=== PATIENT | female | born 1995 ===

== ENCOUNTER 2017-02-03 18:30 | Emergency (ER) | payer BC ==
[~2017-02-03] VITALS: Ht 154.9 cm; Wt 47.9 kg
[2017-02-03 18:33] VITALS: TEMP 36.7; Ht 154.9 cm; Wt 47.9 kg
[2017-02-03] MEDS ORDERED: ASCO1CAP3 PEG (18:45)
[2017-02-03] MEDS ORDERED: BCPILLS PO (18:45)
[2017-02-03] MEDS ORDERED: GELATIN SPONGE 12-7MM EXT ONE (19:00)
[2017-02-03 19:23] VITALS: BP 116/79; PULSE 85; O2SAT 99
--- NOTE | 2017-02-03 20:29 | EMERGENCY ROOM VISIT NOTE ---
History First contact with patient: 18:48 Chief Complaint: LACERATION/CUT (SUT/DERMABOND) Stated Complaint: LACERATION TO RT HAND, 2ND DIGIT Nursing Triage Summary: Laceration to right hand, 2nd digit. reports she was cutting a box and the cutter slipped. Believes Tetanus is utd History of Present Illness The patient is a 21 year old female who presents to the Emergency Room with complaints of a laceration to her right index finger. The patient reports that she was cutting a box and accidentally cut her finger on the sharp edge of the box. She denies any significant bleeding or pain. The patient is right-hand- dominant. She believes that her tetanus immunization is up-to-date, and reports that she will call her family doctor for confirmation. Review of Systems 6 system review was performed and was negative except for pertinent positives and negatives as indicated in history of present illness Past Medical/Surgical History Medical Problems: (1) No significant past medical history Surgical Problems: (1) No history of previous surgery Social History Smoking Status: Never Smoker Alcohol Use: none Marital Status: single Housing Status: lives with roommate Occupation Status: [employer] student Current/Historical Medications Scheduled Ascorbic Acid (Vitamin C), 500 MG PEG DAILY Control Pills ( Control Pills), 1 TAB PO DAILY Physical Exam Vital Signs Date Time Temp Pulse Resp B/P (MAP) Pulse Ox O2 Delivery O2 Flow Rate FiO2 02/03/17 19:23 85 18 116/79 99 02/03/17 18:33 36.7 97 16 119/85 97 Room Air Pain Rating (0-10): 8.0 Physical Exam CONSTITUTIONAL: Healthy and well nourished. Alert and oriented X 3 with positive affect. MUSCULOSKELETAL: Examination of the right index finger shows a small 5 x 6 mm avulsion laceration of the digital pad. There is no active bleeding. There is no involvement of the nail plate. Capillary refill is less than 2 seconds. INTEGUMENTARY: No rash or other significant dermatologic conditions noted. NEUROLOGIC: Right index fingertip is sensory intact. Medical Decision & Procedures ED Course Patient history and physical exam were performed. Nurse's notes were reviewed. Vital signs were reviewed and were normal. A Gelfoam pressure dressing was applied by me. The patient was given additional written and verbal instructions for wound care. She was instructed to watch for any signs of infection. Ibuprofen or Tylenol as needed for pain. The patient was happy with plan of care, and denied any significant pain at the time of discharge. Medical Decision Medication Reconcilliation Current Medication List: was personally reviewed by me Blood Pressure Screening Patient's blood pressure: Normal blood pressure Impression Primary Impression: Laceration of right index finger Departure Information Dispostion Home / Self-Care Forms HOME CARE DOCUMENTATION FORM, IMPORTANT VISIT INFORMATION Patient Instructions My [facility] Additional Instructions Keep dressing in place for 48 hrs, then remove. Soak foam in water until it falls off easily, then clean wound daily, cover with an antibiotic ointment and keep covered until it heals. Return for any signs of infection (increasing redness, swelling, drainage). Ice and elevate for swelling and pain. Ibuprofen 600 mg and/or Tylenol 1000 mg every 8 hours. You may also alternate these medications for more effective pain relief: Ibuprofen --4 HRS--> Tylenol --4 HRS--> ibuprofen --4 HRS--> Tylenol .... Problem Qualifiers Primary Impression: Laceration of right index finger Encounter type: initial encounter Damage to nail status: without damage Foreign body presence: without foreign body Qualified Codes: S61.210A - Laceration without foreign body of right index finger without damage to nail, initial encounter
== END 2017-02-03 19:24 | disposition home or self-care (01) ==
LOC: C.EDB 18:32 → C.EDD 19:24
DX: S61.210A Laceration without foreign body of right index finger without damage to nail, initial encounter (principal); W45.8XXA Other foreign body or object entering through skin, initial encounter

== ENCOUNTER 2017-10-05 17:56 | Emergency (ER) | payer BC ==
[~2017-10-05] VITALS: Ht 156.2 cm; Wt 53.7 kg
[~2017-10-05 17:56] MED LIST: ASCO1CAP3 PEG; BCPILLS PO
[2017-10-05 18:22] VITALS: TEMP 36.8; Ht 156.2 cm; Wt 53.7 kg
--- NOTE | 2017-10-05 19:18 | DIAGNOSTIC IMAGING REPORT ---
CHEST ONE VIEW PORTABLE CLINICAL HISTORY: Atypical chest pain. Chest tightness. Difficulty breathing. COMPARISON STUDY: No previous studies for comparison. FINDINGS: The cardiac and mediastinal contours are normal. There is no evidence of focal pulmonary consolidation. There is no evidence of failure. No pleural effusions are visualized.[ Increased markings towards the lung bases are felt to be secondary to overlying breast tissue attenuation and scatter. An equivocal 5 mm cystic lesion within the left lower lung zone, likely represents a summation. IMPRESSION: 1. 5 mm cystic density visualized towards the left lung base, statistically secondary to a summation 2. No evidence of focal pulmonary consolidation Electronically signed by: John Jett M.D. 10/05/2017 7:17 PM Dictated Date/Time: 10/05/2017 7:15 PM
--- NOTE | 2017-10-05 19:25 | EMERGENCY ROOM VISIT NOTE ---
History Report prepared by Anabel: Amauri Garcia Under the Supervision of: Dr. Clay Wall M.D. First contact with patient: 18:52 Chief Complaint: ILLNESS Stated Complaint: HEART PAIN,TIGHTING,TROUBLE BREATHING History of Present Illness The patient is a 21 year old female who presents to the Emergency Room with complaints of worsening left chest pain beginning about 1.5 weeks ago. She currently rates her discomfort a 7/10 in severity. The patient states she has been experiencing these symptoms for a while, but she just recently started noticing them. She reports she turned to her side yesterday and she had a sharp pain in her chest. The patient notes her chest pain causes her to experience shortness of breath and diaphoresis. She states her discomfort radiates to her left shoulder and neck. The patient reports there will be moments when her heart is beating loudly and can hear it in her ribs. She notes eating causes her discomfort to worsen and her chest to tighten. The patient states she was eating oatmeal this morning and vomited. She reports she has to hold her chest to walk, and her left side is getting darker. The patient notes he has been stressed recently with copious amounts of school work. She states she used to smoke marijuana and stopped when she realized she was experiencing her symptoms. The patient reports she is currently on her menstrual period. Pt denies LOC, headache, fevers, chills, visual changes, nausea, new abdominal pain , back pain, melena, hematochezia, urinary symptoms, numbness, weakness, lymphadenopathy, rash, or other complaints. Source of History: patient Onset: 1.5 weeks ago Position: chest (left) Symptom Intensity: 7/10 Quality: sharp Timing: worsening Associated Symptoms: + diaphoresis, + SOB, + vomiting Note: Associated symptoms: chest tightness, left side chest discoloration, exposed to stress Review of Systems See HPI for pertinent positives and negatives. A total of ten systems were reviewed and were otherwise negative. Past Medical & Surgical Medical Problems: (1) No significant past medical history Surgical Problems: (1) No history of previous surgery Family History Patient reports no known family medical history. Social History Smoking Status: Never Smoker Alcohol Use: none Marital Status: single Housing Status: lives with roommate Occupation Status: [employer] student Current/Historical Medications Scheduled Ascorbic Acid (Vitamin C), 500 MG PEG DAILY Control Pills ( Control Pills), 1 TAB PO DAILY Physical Exam Vital Signs Date Time Temp Pulse Resp B/P (MAP) Pulse Ox O2 Delivery O2 Flow Rate FiO2 10/05/17 21:28 89 16 123/76 98 10/05/17 19:48 100 Room Air 10/05/17 19:48 86 16 122/74 100 Room Air 10/05/17 18:22 36.8 101 20 126/75 99 Room Air Physical Exam GENERAL: Awake, alert, mildly anxious-appearing, in no distress HENT: Normocephalic, atraumatic. Oropharynx unremarkable. EYES: Normal conjunctiva. Sclera non-icteric. NECK: Supple. No nuchal rigidity. FROM. No masses. RESPIRATORY: Clear to auscultation. No wheezes. No rales. Normal respiratory effort. CARDIAC: Borderline tachycardic rate. Normal rhythm. No murmurs. No rubs. Extremities warm and well perfused. Pulses equal. No JVD. GI: Soft, non-distended. No tenderness to palpation. No rebound or guarding. No masses. RECTAL: Deferred. MUSCULOSKELETAL: Atraumatic. Chest examination (performed in the presence of a female nurse) reveals tenderness to the left costal margin and sternal boarder that reproduces her pain. Breast appears normal with no masses. The back is symmetrical on inspection without obvious abnormality. There is no CVA tenderness to palpation. No joint edema. LOWER EXTREMITIES: Calves are equal size bilaterally and non-tender. No edema. No discoloration. NEURO: Normal sensorium. No sensory or motor deficits noted. SKIN: No rash or jaundice noted. Medical Decision & Procedures ER Provider Diagnostic Interpretation: X-ray: Per my interpretation, radiologist review. CHEST ONE VIEW PORTABLE CLINICAL HISTORY: Atypical chest pain. Chest tightness. Difficulty breathing. COMPARISON STUDY: No previous studies for comparison. FINDINGS: The cardiac and mediastinal contours are normal. There is no evidence of focal pulmonary consolidation. There is no evidence of failure. No pleural effusions are visualized.[ Increased markings towards the lung bases are felt to be secondary to overlying breast tissue attenuation and scatter. An equivocal 5 mm cystic lesion within the left lower lung zone, likely represents a summation. IMPRESSION: 1. 5 mm cystic density visualized towards the left lung base, statistically secondary to a summation 2. No evidence of focal pulmonary consolidation Electronically signed by: John Jett M.D. 10/05/2017 7:17 PM Dictated Date/Time: 10/05/2017 7:15 PM CHEST 2 VIEWS ROUTINE CLINICAL HISTORY: Atypical chest pain. Difficulty breathing. Abnormal chest x-ray. COMPARISON STUDY: Earlier today FINDINGS: The cardiac and mediastinal contours are normal. There is no evidence of focal pulmonary consolidation. There is no evidence of failure. No pleural effusions are visualized.[ The previously identified cystic density within the left lower lobe is not visualized on this repeat study. This confirms that it represented a summation. IMPRESSION: No active disease in the chest. Electronically signed by: John Jett M.D. 10/05/2017 8:24 PM Dictated Date/Time: 10/05/2017 8:23 PM Laboratory Results 10/05/17 19:21 Red Blood Count 5.05, Mean Corpuscular Volume 80.6, Mean Corpuscular Hemoglobin 26.9, Mean Corpuscular Hemoglobin Concent 33.4, Mean Platelet Volume 9.6, Neutrophils (%) (Auto) 71.7, Lymphocytes (%) (Auto) 19.8, Monocytes (%) (Auto) 7.6, Eosinophils (%) (Auto) 0.2, Basophils (%) (Auto) 0.1, Neutrophils # (Auto) 7.53, Lymphocytes # (Auto) 2.08, Monocytes # (Auto) 0.80, Eosinophils # (Auto) 0.02, Basophils # (Auto) 0.01 10/05/17 19:21 Test 10/05/17 19:21 10/05/17 19:27 White Blood Count 10.50 K/uL (4.8-10.8) Red Blood Count 5.05 M/uL (4.2-5.4) Hemoglobin 13.6 g/dL (12.0-16.0) Hematocrit 40.7 % (37-47) Mean Corpuscular Volume 80.6 fL (80-100) Mean Corpuscular Hemoglobin 26.9 pg (25-34) Mean Corpuscular Hemoglobin Concent 33.4 g/dl (32-36) Platelet Count 304 K/uL (130-400) Mean Platelet Volume 9.6 fL (7.4-10.4) Neutrophils (%) (Auto) 71.7 % Lymphocytes (%) (Auto) 19.8 % Monocytes (%) (Auto) 7.6 % Eosinophils (%) (Auto) 0.2 % Basophils (%) (Auto) 0.1 % Neutrophils # (Auto) 7.53 K/uL (1.4-6.5) Lymphocytes # (Auto) 2.08 K/uL (1.2-3.4) Monocytes # (Auto) 0.80 K/uL (0.11-0.59) Eosinophils # (Auto) 0.02 K/uL (0-0.5) Basophils # (Auto) 0.01 K/uL (0-0.2) RDW Standard Deviation 42.3 fL (36.4-46.3) RDW Coefficient of Variation 14.6 % (11.5-14.5) Immature Granulocyte % (Auto) 0.6 % Immature Granulocyte # (Auto) 0.06 K/uL (0.00-0.02) Erythrocyte Sedimentation Rate 19 mm/hr (0-21) Prothrombin Time 10.8 SECONDS (9.0-12.0) Prothromb Time International Ratio 1.0 (0.9-1.1) Activated Partial Thromboplast Time 26.0 SECONDS (21.0-31.0) Partial Thromboplastin Ratio 1.0 Anion Gap 8.0 mmol/L (3-11) Est Creatinine Clear Calc Drug Dose 113.7 ml/min Estimated GFR () > 150.0 Estimated GFR (Non- 130.5 BUN/Creatinine Ratio 12.2 (10-20) Calcium Level 9.5 mg/dl (8.5-10.1) Total Bilirubin 0.9 mg/dl (0.2-1) Direct Bilirubin 0.2 mg/dl (0-0.2) Aspartate Amino Transf (AST/SGOT) 15 U/L (15-37) Alanine Aminotransferase (ALT/SGPT) 21 U/L (12-78) Alkaline Phosphatase 94 U/L (45-117) Total Protein 8.7 gm/dl (6.4-8.2) Albumin 4.2 gm/dl (3.4-5.0) Lipase 249 U/L (73-393) Human Chorionic Gonadotropin, Qual NEG (NEG) Bedside D-Dimer 71 ng/mlFEU (0-450) Bedside Troponin I < 0.030 ng/ml (0-0.045) Laboratory results reviewed by me ECG Per My Interpretation Indication: chest pain Rate (beats per minute): 89 Rhythm: normal sinus Findings: no acute ischemic change, no ectopy, other (No pericarditis) ED Course 1856: The patient was evaluated in room B06. A complete history and physical exam was performed. 2006: I reevaluated the patient and performed a chest examination in the presence of a female nurse. Refer to the physical exam for findings. 2058: I reevaluated the patient. Discussed results and discharge instructions: she verbalized understanding and agreement. The patient is ready for discharge. Medical Decision Triage Nursing notes reviewed. The patient's presentation and history were concerning for chest pain and shortness of breath. Etiologies such as anxiety, pleurisy, costochondritis, cardiac ischemia, aortic dissection, pulmonary embolism, pneumonia, pneumothorax, musculoskeletal, infections, gastrointestinal, as well as others were entertained. The patient was evaluated. She was mildly anxious. She was borderline tachycardic. She had no stigmata of DVT in the lower extremities. She is on control. Blood work, ECG and chest x-ray were performed. Troponin negative. D-dimer negative. Her CBC, chemistry panel, LFTs and lipase were negative as well. Chest x-ray questioned a left lower lobe abnormality versus summation. Two-view chest x-ray was performed and no abnormalities were seen. The patient did have a tender chest wall on examination with a nurse nail kegger. This could easily be a costochondritis or musculoskeletal source given the reproducible tenderness and lack of other findings. I discussed conservative management. Patient does note that she is under a lot of stress but is looking forward to the end of the semester. I will have her follow-up closely as an outpatient. If she worsens in any way she will be back. I gave my usual and customary discussion regarding this issue. By the evaluation outlined above other emergent etiologies such as those listed in the differential, as well as others, were deemed relatively unlikely. The patient was educated about the findings as listed above. All questions were answered and the patient was pleased with the treatment. Return instructions were outlined and the patient was discharged in stable condition. The patient was referred to [facility] for follow-up for a recheck of the current condition. Medication Reconcilliation Current Medication List: was personally reviewed by me Blood Pressure Screening Patient's blood pressure: Normal blood pressure Blood pressure disposition: Did not require urgent referral Impression Primary Impression: Left sided chest pain Scribe Attestation The scribe's documentation has been prepared under my direction and personally reviewed by me in its entirety. I confirm that the note above accurately reflects all work, treatment, procedures, and medical decision making performed by me. Departure Information Dispostion Home / Self-Care Referrals No Doctor, Assigned (PCP) Forms HOME CARE DOCUMENTATION FORM, IMPORTANT VISIT INFORMATION, WORK / SCHOOL INSTRUCTIONS Patient Instructions My [facility] Additional Instructions CHEST PAIN INSTRUCTIONS: Ibuprofen(Motrin, Advil) may be used for fever or pain. Use 600mg every six hours as needed. Take with food. Avoid using more than 2400mg in a 24 hour period. Do not use 2400mg per day for more than three consecutive days without physician direction. Prolonged inappropriate use can lead to stomach upset or ulcers. (AND/OR) Acetaminophen(Tylenol) may be used for fever or pain. Use 1000mg every six hours as needed. Avoid using more than 3000mg in a 24 hour period. Rest and drink plenty of fluids as tolerated. Continue current medications. Avoid strenuous activities and anything that worsens your pain. Resume normal activities once your symptoms resolve. Return to the ER immediately for worsening or persistent chest pain, abdominal pain, vomiting, fevers, chest pains, difficulty breathing, worsening of your condition, or as needed. Follow up with [facility] services in 2-3 days for a recheck of your current condition.
[2017-10-05 19:31] LABS: BASO % 0.1 %; BASO ABS # 0.01 K/uL (0-0.2); EOS % 0.2 %; EOS ABS # 0.02 K/uL (0-0.5); HEMATOCRIT 40.7 % (37-47); HEMOGLOBIN 13.6 g/dL (12.0-16.0); IG# 0.06 K/uL (0.00-0.02); LYMPH % 19.8 %; LYMPH ABS # 2.08 K/uL (1.2-3.4); MEAN CELL VOLUME 80.6 fL (80-100); MEAN CORPUSCULAR HEMOGLOBIN 26.9 pg (25-34); MEAN CORPUSCULAR HGB CONC 33.4 g/dl (32-36); MEAN PLATELET VOLUME 9.6 fL (7.4-10.4); MONO % 7.6 %; NEUT % 71.7 %; NEUT ABS # 7.53 K/uL (1.4-6.5); PLATELET COUNT 304 K/uL (130-400); RED CELL DISTRIBUTION WIDTH CV 14.6 % (11.5-14.5); RED CELL DISTRIBUTION WIDTH SD 42.3 fL (36.4-46.3)
[2017-10-05 19:48] VITALS: O2SAT 100
[2017-10-05 19:49] LABS: ALBUMIN 4.2 gm/dl (3.4-5.0); ALT/SGPT 21 U/L (12-78); AST/SGOT 15 U/L (15-37); BLOOD UREA NITROGEN 7 mg/dl (7-18); CALCIUM 9.5 mg/dl (8.5-10.1); CARBON DIOXIDE 24 mmol/L (21-32); CREATININE 0.61 mg/dl (0.60-1.20); GLUCOSE 92 mg/dl (70-99); LIPASE 249 U/L (73-393); POTASSIUM 3.4 mmol/L (3.5-5.1); SODIUM 137 mmol/L (136-145)
[2017-10-05 19:52] LABS: ALKALINE PHOSPHATASE 94 U/L (45-117); TOTAL PROTEIN 8.7 gm/dl (6.4-8.2)
--- NOTE | 2017-10-05 20:25 | DIAGNOSTIC IMAGING REPORT ---
CHEST 2 VIEWS ROUTINE CLINICAL HISTORY: Atypical chest pain. Difficulty breathing. Abnormal chest x-ray. COMPARISON STUDY: Earlier today FINDINGS: The cardiac and mediastinal contours are normal. There is no evidence of focal pulmonary consolidation. There is no evidence of failure. No pleural effusions are visualized.[ The previously identified cystic density within the left lower lobe is not visualized on this repeat study. This confirms that it represented a summation. IMPRESSION: No active disease in the chest. Electronically signed by: John Jett M.D. 10/05/2017 8:24 PM Dictated Date/Time: 10/05/2017 8:23 PM
[2017-10-05 21:28] VITALS: BP 123/76; PULSE 89; O2SAT 98
== END 2017-10-05 21:28 | disposition home or self-care (01) ==
LOC: C.EDB 18:00
DX: R07.9 Chest pain, unspecified (principal)

== ENCOUNTER 2017-10-08 15:45 | Emergency (ER) | payer BC ==
[~2017-10-08] VITALS: Ht 157.5 cm; Wt 48.0 kg
[2017-10-08 16:13] VITALS: TEMP 37; Ht 157.5 cm; Wt 48.0 kg
[2017-10-08] MEDS ORDERED: ONDANSETRON INJ 2 MG/ML 2 ML VIAL IV STA (17:56)
[2017-10-08] MEDS ORDERED: SODIUM CHLORIDE 0.9% 1000ML 1,000 ML IV STA (17:56)
[2017-10-08] MEDS ORDERED: GI COCKTAIL PO STA (17:56)
[2017-10-08 17:57] LABS: ALBUMIN 4.1 gm/dl (3.4-5.0); CALCIUM 9.2 mg/dl (8.5-10.1); CREATININE 0.63 mg/dl (0.60-1.20); POTASSIUM 3.8 mmol/L (3.5-5.1)
[2017-10-08 18:00] LABS: TOTAL PROTEIN 8.4 gm/dl (6.4-8.2)
[2017-10-08] MEDS ORDERED: PANT40TA PO (18:08)
[2017-10-08 18:11] LABS: BASO % 0.1 %; BASO ABS # 0.01 K/uL (0-0.2); EOS % 0.2 %; EOS ABS # 0.02 K/uL (0-0.5); HEMATOCRIT 43.1 % (37-47); HEMOGLOBIN 14.3 g/dL (12.0-16.0); IG# 0.06 K/uL (0.00-0.02); LYMPH % 24.3 %; LYMPH ABS # 2.43 K/uL (1.2-3.4); MEAN CELL VOLUME 81.2 fL (80-100); MEAN CORPUSCULAR HEMOGLOBIN 26.9 pg (25-34); MEAN CORPUSCULAR HGB CONC 33.2 g/dl (32-36); MEAN PLATELET VOLUME 10.2 fL (7.4-10.4); MONO % 6.4 %; MONO ABS # 0.64 K/uL (0.11-0.59); NEUT % 68.4 %; NEUT ABS # 6.85 K/uL (1.4-6.5); PLATELET COUNT 331 K/uL (130-400); RED CELL DISTRIBUTION WIDTH CV 14.6 % (11.5-14.5); WHITE BLOOD COUNT 10.01 K/uL (4.8-10.8)
[2017-10-08] MEDS ORDERED: LIDOCAINE HCL 2% VISC SOLN 20 ML UDC ONE (18:13)
[2017-10-08] MEDS ORDERED: ALUMINUM/MAGNESIUM SUSP 30 ML UDC ONE (18:13)
--- NOTE | 2017-10-08 18:44 | EMERGENCY ROOM VISIT NOTE ---
ED Visit Note First contact with patient: 17:34 CHIEF COMPLAINT: Abdominal pain, nausea and vomiting HISTORY OF PRESENTING ILLNESS: This is a 21-year-old female who presents to the emergency department with complaint of epigastric and upper quadrant abdominal pain. Patient states that she has been having some issues with stomach pain off and on for the past few months, states that she saw her doctor who told her she most likely had gastritis and started her on Protonix. She states she has been taking the Protonix but her symptoms have been getting worse. She states for the past 2 days she has been having severe burning pain in her stomach that occasionally radiates up toward her throat. She has noticed a bad, sour taste in her mouth in the mornings. She states that she has been burping a lot more than usual as well. She states that she gets severe nausea and increased pain every time she tries to eat. She states that she has been vomiting up foamy phlegm first thing in the morning, she denies any bloody or bilious emesis. She has also noticed for the past 2-3 days that she has been having green colored stools, which is also new. She states that the pain is fairly constant , worse with eating, 9/10. She has not tried any medications for her symptoms. She denies any fevers or chills, headaches, chest pain, shortness of breath, syncope, back pain, diarrhea, bloody or black stools, dysuria or urinary frequency, abnormal vaginal bleeding or discharge, or unusual rash. REVIEW OF SYSTEMS: A complete 10 point review of systems was reviewed with the patient with pertinent positives and negatives as per history of present illness. All else were negative. PAST MEDICAL HISTORY: No significant past medical or surgical history. She is up-to-date on immunizations. FAMILY HISTORY: No known family history of bladder disease, GERD or peptic ulcer disease SOCIAL HISTORY: Lives at home. She is a [employer] student. She denies tobacco use, alcohol or recreational drug use. ALLERGIES: No known allergies. PHYSICAL EXAM: CONSTITUTIONAL: Pleasant and cooperative. No acute distress, but does appear uncomfortable. Tearful on exam. Mildly dehydrated, but otherwise well appearing and well nourished. HEENT: Normocephalic, atraumatic. Pupils equal, round and reactive to light, EOMI. TMs normal. Pharynx normal. Tacky mucous membranes. NECK: Supple, full active range of motion without discomfort. No cervical adenopathy. RESPIRATORY: Clear to auscultation bilaterally with no wheezing, crackles, rhonchi or stridor. Equal expansion bilaterally. CARDIOVASCULAR: Regular rate and rhythm with no murmurs, rubs or gallops. Normal peripheral perfusion. No edema. GASTROINTESTINAL: Soft, tender in the epigastric and right upper quadrant abdomen, nondistended. No rebound tenderness or guarding. No palpable masses or HSM. Bowel sounds present in all quadrants. No CVA tenderness. MUSCULOSKELETAL: Full range of motion of all joints without discomfort. INTEGUMENTARY: No rash or other significant dermatologic conditions noted. NEUROLOGIC: Alert and oriented X 4 with normal affect. Normal strength and sensation in all 4 extremities. No focal neurologic deficits noted. Normal speech. Normal gait observed. ED COURSE AND MEDICAL DECISION MAKING: CC: Patient presenting with complaint of Abdominal pain and nausea/vomiting DIFFERENTIAL DIAGNOSIS: Includes, but not limited to gastritis, gastroenteritis , GERD, peptic ulcer disease, cholecystitis, cholelithiasis, pancreatitis, IBS, dehydration, electrolyte abnormality, among others. INTERPRETATION OF LABS: No leukocytosis, no anemia, no significant electrolyte abnormalities, normal renal function, elevated T bili, liver enzymes are otherwise within normal limits, normal lipase. UA consistent with mild dehydration, otherwise negative, urine negative. IMAGING: GALLBLADDER-ABD LIMITED CLINICAL HISTORY: epigastric, RUQ pain, n/v/d, eval GB pain. Nausea. TECHNIQUE: Ultrasound COMPARISON STUDY: None FINDINGS: Normal gallbladder. Normal biliary ductal system. Common bile duct 3 mm. Liver is uniform. Pancreas and right kidney are unremarkable. No evidence for hydronephrosis. IMPRESSION: Normal study ----- ABDOMEN 2VIEW W/PA CHEST RTN CLINICAL HISTORY: epigastric pain/burning, eval obstruction, free air pain COMPARISON STUDY: 10/05/2017 FINDINGS: The soft tissues, psoas shadows, renal outlines and intestinal gas pattern appear normal. There is no evidence for bowel obstruction. There is no evidence for free intraperitoneal air. No abnormal abdominal calcifications are seen. A frontal view of the chest was performed and is unremarkable. IMPRESSION: Normal study. MEDICATION RECONCILIATION: I attest that I have personally reviewed the patient 's current medication list. INITIAL VITAL SIGNS REVIEW: I reviewed the patient's initial vital signs and interpret them as follows: T: Afebrile; BP: Normotensive; HR: Tachycardic; RR : Within normal limits; Pulse Ox: Within normal limits on room air. Blood pressure screening: The patient was found to have normal blood pressure on screening and does not require follow-up for repeat blood pressure check. SUMMARY: Patient was evaluated at bedside, history and physical exam performed. Patient is alert and oriented, in no acute distress, resting calmly in stretcher. Patient is tender in the epigastric and right upper quadrant region. There is no definite Smith's point tenderness, but generalized tenderness of the right upper quadrant. Patient looks mildly dehydrated and is noted to be somewhat tachycardic, vitals are otherwise stable. Orders were placed at bedside for labs, UA and urine , IV fluids for hydration, IV Zofran for nausea, GI cocktail for epigastric pain, acute abdominal x-ray to rule out free air and obstructive pattern, right upper quadrant ultrasound to evaluate for bladder disease. Patient discussed with Dr. Davidson, who agrees with my assessment and plan. Labs and imaging reviewed as above, generally unremarkable. Imaging negative for any signs of bowel obstruction, free intraperitoneal air, or acute gallbladder. T bili is slightly elevated, this could be because the patient has been vomiting. Given the nature of the patient's symptoms, especially a burning sensation in the stomach, radiating pain of the chest, burping and sour taste in the mouth, I do feel the patient has reflux and/or gastritis. Patient reassessed multiple times throughout ED stay, she is improved after the above treatments. She is asking for something to eat and drink, she was provided with crackers and soda, which she tolerated well. Patient was deemed stable for discharge. Patient was updated on all results and plan for discharge, she was encouraged to follow closely with her PCP or [facility] for ongoing management of her symptoms. Patient also was encouraged to follow up with a GI specialist, she states that she has a GI doctor back in [place] where she is from. I did encourage her to get in touch with that doctor to discuss the possibility of an endoscopy if her symptoms persist. Patient was also given strict return precautions should her symptoms worsen, she verbalized understanding. Patient was discharged home in stable condition and ambulatory. Current/Historical Medications Scheduled Control Pills ( Control Pills), 1 TAB PO HS Ondasetron Odt (Zofran Odt), 4 MG SL Q6H Pantoprazole (Protonix), 40 MG PO QAM Allergies Coded Allergies: No Known Allergies (Unverified , 10/08/17) Vital Signs Date Time Temp Pulse Resp B/P (MAP) Pulse Ox O2 Delivery O2 Flow Rate FiO2 10/08/17 20:47 65 12 115/70 98 Room Air 10/08/17 19:58 72 12 120/67 98 Room Air 10/08/17 18:40 81 12 117/90 98 Room Air 10/08/17 16:13 37.0 106 20 124/86 99 Room Air Laboratory Results 10/08/17 17:20 Red Blood Count 5.31, Mean Corpuscular Volume 81.2, Mean Corpuscular Hemoglobin 26.9, Mean Corpuscular Hemoglobin Concent 33.2, Mean Platelet Volume 10.2, Neutrophils (%) (Auto) 68.4, Lymphocytes (%) (Auto) 24.3, Monocytes (%) (Auto) 6.4, Eosinophils (%) (Auto) 0.2, Basophils (%) (Auto) 0.1, Neutrophils # (Auto) 6.85, Lymphocytes # (Auto) 2.43, Monocytes # (Auto) 0.64, Eosinophils # (Auto) 0.02, Basophils # (Auto) 0.01 10/08/17 17:20 Test 10/08/17 17:20 10/08/17 17:45 White Blood Count 10.01 K/uL (4.8-10.8) Red Blood Count 5.31 M/uL (4.2-5.4) Hemoglobin 14.3 g/dL (12.0-16.0) Hematocrit 43.1 % (37-47) Mean Corpuscular Volume 81.2 fL (80-100) Mean Corpuscular Hemoglobin 26.9 pg (25-34) Mean Corpuscular Hemoglobin Concent 33.2 g/dl (32-36) Platelet Count 331 K/uL (130-400) Mean Platelet Volume 10.2 fL (7.4-10.4) Neutrophils (%) (Auto) 68.4 % Lymphocytes (%) (Auto) 24.3 % Monocytes (%) (Auto) 6.4 % Eosinophils (%) (Auto) 0.2 % Basophils (%) (Auto) 0.1 % Neutrophils # (Auto) 6.85 K/uL (1.4-6.5) Lymphocytes # (Auto) 2.43 K/uL (1.2-3.4) Monocytes # (Auto) 0.64 K/uL (0.11-0.59) Eosinophils # (Auto) 0.02 K/uL (0-0.5) Basophils # (Auto) 0.01 K/uL (0-0.2) RDW Standard Deviation 43.0 fL (36.4-46.3) RDW Coefficient of Variation 14.6 % (11.5-14.5) Immature Granulocyte % (Auto) 0.6 % Immature Granulocyte # (Auto) 0.06 K/uL (0.00-0.02) Anion Gap 7.0 mmol/L (3-11) Est Creatinine Clear Calc Drug Dose 107.9 ml/min Estimated GFR () 149.7 Estimated GFR (Non- 129.1 BUN/Creatinine Ratio 12.4 (10-20) Calcium Level 9.2 mg/dl (8.5-10.1) Total Bilirubin 1.2 mg/dl (0.2-1) Aspartate Amino Transf (AST/SGOT) 19 U/L (15-37) Alanine Aminotransferase (ALT/SGPT) 23 U/L (12-78) Alkaline Phosphatase 93 U/L (45-117) Total Protein 8.4 gm/dl (6.4-8.2) Albumin 4.1 gm/dl (3.4-5.0) Globulin 4.3 gm/dl (2.5-4.0) Albumin/Globulin Ratio 1.0 (0.9-2) Lipase 108 U/L (73-393) Urine Color YELLOW Urine Appearance CLEAR (CLEAR) Urine pH 6.0 (4.5-7.5) Urine Specific [place] 1.021 (1.000-1.030) Urine Protein NEG (NEG) Urine Glucose (UA) NEG (NEG) Urine Ketones TRACE (NEG) Urine Occult Blood 1+ (NEG) Urine Nitrite NEG (NEG) Urine Bilirubin NEG (NEG) Urine Urobilinogen NEG (NEG) Urine Leukocyte Esterase NEG (NEG) Urine WBC (Auto) 1-5 /hpf (0-5) Urine RBC (Auto) 0-4 /hpf (0-4) Urine Hyaline Casts (Auto) 1-5 /lpf (0-5) Urine Epithelial Cells (Auto) >30 /lpf (0-5) Urine Bacteria (Auto) NEG (NEG) Urine Test NEG (NEG) Medications Administered Medications (Trade) Dose Ordered Sig/Madhav Route Start Time Stop Time Status Last Admin Dose Admin Sodium Chloride 1,000 ml @ 999 mls/hr Q1H1M STAT IV 10/08/17 17:56 10/08/17 18:56 DC 10/08/17 17:56 999 MLS/HR Ondansetron HCl (Zofran Inj) 4 mg NOW STAT IV 10/08/17 17:56 10/08/17 17:59 DC 10/08/17 18:16 4 MG Al Hydroxide/Mg Hydroxide (Maalox Susp) 30 ml STK-MED ONCE .ROUTE 10/08/17 18:13 10/08/17 18:14 DC 10/08/17 18:17 30 ML Lidocaine HCl (Viscous Lidocaine 2% Soln) 20 ml STK-MED ONCE .ROUTE 10/08/17 18:13 10/08/17 18:14 DC 10/08/17 18:16 20 ML Famotidine (Pepcid Tab) 20 mg NOW ONCE PO 10/08/17 20:00 10/08/17 20:01 DC 10/08/17 19:57 20 MG Ondansetron HCl (Zofran Odt) 4 mg NOW STAT PO 10/08/17 20:37 10/08/17 20:39 DC 10/08/17 20:37 4 MG Departure Information Impression Primary Impression: Epigastric abdominal pain Additional Impression: Nausea & vomiting Dispostion Home / Self-Care Condition GOOD Prescriptions Ondasetron Odt (ZOFRAN ODT) 4 Mg Tab 4 MG SL Q6H for Nausea, #6 TAB Prov: Dana Chou, [employer] 10/08/17 Referrals No Doctor, Assigned (PCP) Patient Instructions ED Epigastric Pain [facility], ED PUD Vs Gastritis, [facility] Additional Instructions You have been treated in the Emergency Department for your nausea and abdominal pain. Laboratory results and imaging studies have ruled out any emergent causes for your symptoms which would warrant admission or surgery. You have been prescribed Zofran to be used as needed for nausea/vomiting. Take as prescribed. For pain control, you can use the following [id number] medicines (if >12 yo): - Regular strength (325mg/tab) Tylenol (acetaminophen) 2 tabs every 4-6 hours as needed. Do not exceed 10 tablets in a 24 hour period. Avoid taking more than 3000 mg of Tylenol per day. This includes any other sources of acetaminophen you may take on a regular basis. Avoid NSAIDs such as ibuprofen, Aleve, naproxen, Advil, Motrin, etc., as this may make your stomach pain worse. Avoid caffeinated beverages such as coffee, tea, and soda, and avoid any spicy foods. Continue taking your Protonix as prescribed. You should start taking over-the- counter Zantac or Pepcid daily as well. Drink plenty of fluids to stay well hydrated. Please follow-up with your Primary Care Provider for [facility] in the next few days to reevaluate your abdominal pain. Return to the emergency department for severe worsening abdominal or back pain, worsening nausea/vomiting, vomiting blood, blood in your stool or urine, fevers > 101.5, severe dizziness or passing out, or any other concerns. Problem Qualifiers Additional Impression: Nausea & vomiting Vomiting type: unspecified Vomiting Intractability: non-intractable Qualified Codes: R11.2 - Nausea with vomiting, unspecified
--- NOTE | 2017-10-08 19:12 | DIAGNOSTIC IMAGING REPORT ---
GALLBLADDER-ABD LIMITED CLINICAL HISTORY: epigastric, RUQ pain, n/v/d, eval GB pain. Nausea. TECHNIQUE: Ultrasound COMPARISON STUDY: None FINDINGS: Normal gallbladder. Normal biliary ductal system. Common bile duct 3 mm. Liver is uniform. Pancreas and right kidney are unremarkable. No evidence for hydronephrosis. IMPRESSION: Normal study The above report was generated using voice recognition software. It may contain grammatical, syntax or spelling errors. Electronically signed by: Maxx Porter M.D. 10/08/2017 7:11 PM Dictated Date/Time: 10/08/2017 7:10 PM
--- NOTE | 2017-10-08 19:37 | DIAGNOSTIC IMAGING REPORT ---
ABDOMEN 2VIEW W/PA CHEST RTN CLINICAL HISTORY: epigastric pain/burning, eval obstruction, free air pain COMPARISON STUDY: 10/05/2017 FINDINGS: The soft tissues, psoas shadows, renal outlines and intestinal gas pattern appear normal. There is no evidence for bowel obstruction. There is no evidence for free intraperitoneal air. No abnormal abdominal calcifications are seen. A frontal view of the chest was performed and is unremarkable. IMPRESSION: Normal study. The above report was generated using voice recognition software. It may contain grammatical, syntax or spelling errors. Electronically signed by: Maxx Porter M.D. 10/08/2017 7:35 PM Dictated Date/Time: 10/08/2017 7:35 PM
[2017-10-08] MEDS ORDERED: FAMOTIDINE 20 MG TAB PO ONE (20:00)
[2017-10-08] MEDS ORDERED: ONDA4TAB10 SL (20:11)
[2017-10-08] MEDS ORDERED: ONDANSETRON 4MG OD TAB PO STA (20:37)
[2017-10-08 20:47] VITALS: BP 115/70; PULSE 65; O2SAT 98
== END 2017-10-08 21:02 | disposition home or self-care (01) ==
LOC: C.EDB 15:46
DX: R10.13 Epigastric pain (principal); R11.2 Nausea with vomiting, unspecified; R14.2 Eructation; R19.5 Other fecal abnormalities; Z79.3 Long term (current) use of hormonal contraceptives; Z79.899 Other long term (current) drug therapy